=== PATIENT | female | born 1975 | race African-American/Black ===

== ENCOUNTER 2017-06-05 07:57 | Outpatient (CLI) | payer OTHER | END 2017-06-05 07:58 | disposition home or self-care (01) | LOC: BICMAMMO 07:57 | PROVIDERS: ATTEND Family Medicine | DX: Z12.31 Encounter for screening mammogram for malignant neoplasm of breast (principal); Z80.3 Family history of malignant neoplasm of breast | CPT/HCPCS: 77067 ==